=== PATIENT | male | born 1990 | race Hispanic/Latino ===

== ENCOUNTER 2018-04-15 13:32 | Emergency (ER) | payer OTHER | END 2018-04-15 14:47 | disposition home or self-care (01) | LOC: EDH 13:32 | DX: K11.20 Sialoadenitis, unspecified (principal); Z98.890 Other specified postprocedural states; Z72.0 Tobacco use ==

== ENCOUNTER 2018-11-19 23:03 | Inpatient (IN) | payer SELFPAY ==
[~2018-11-19] VITALS: Ht 175.3 cm; Wt 104.6 kg
[2018-11-19] MEDS ORDERED: SODIUM CHLORIDE 0.9% 1000ML 1,000 ML IV ONE (23:46)
[2018-11-20 00:08] LABS: BASOPHILS % (AUTO) 0.3 % (0.0-5.0); HEMATOCRIT 46.9 % (42-54); LYMPHOCYTES % (AUTO) 6.7 % (21.0-51.0); MEAN CORPUSCULAR HEMOGLOBIN 30.9 pg (27.0-33.0); MEAN CORPUSCULAR HGB CONC 33.4 g/dL (32.0-36.0); MEAN CORPUSCULAR VOLUME 92.5 fL (79-99); MONOCYTES % (AUTO) 3.4 % (3.0-13.0); NEUTROPHILS % (AUTO) 89.6 % (40.0-77.0); PLATELET COUNT (AUTO) 187 K/uL (130-400); RED BLOOD CELL COUNT(AUTO) 5.07 MIL/uL (4.50-6.20); RED CELL DISTRIBUTION WIDTH 13.6 % (11.0-15.5); WHITE BLOOD COUNT (AUTO) 20.7 K/uL (4.8-10.8)
[2018-11-20 00:16] LABS: BILIRUBIN,URINE Negative (NEGATIVE); COLOR,URINE Dark Yellow (YELLOW); GLUCOSE, URINE (UA) Negative (NEGATIVE); KETONES,URINE >=80 mg/dL (NEGATIVE); LEUKOCYTE ESTERASE ,URINE Negative (NEGATIVE); NITRATE,URINE Negative (NEGATIVE); OCCULT BLOOD,URINE Large (NEGATIVE); PROTEIN,URINE POS 1+ mg/dL (NEGATIVE)
[2018-11-20 00:19] LABS: CREATININE 1.2 mg/dL (0.5-1.5); POTASSIUM 3.6 mmol/L (3.5-5.1)
[2018-11-20 00:24] LABS: ALBUMIN 4.2 g/dL (3.5-5.0); BILIRUBIN,DIRECT 0.1 mg/dL (0.0-0.3); BILIRUBIN,TOTAL 0.4 mg/dL (0.2-1.0); TOTAL PROTEIN, SERUM 8.4 g/dL (6.0-8.3)
[2018-11-20 00:25] LABS: APPEARANCE,URINE TURBID (CLEAR)
[2018-11-20 00:26] LABS: BACTERIA,URINE None Seen /HPF (None Seen); CALCIUM OXALATE CRYSTALS,UR Rare /LPF (None Seen); SQUAMOUS EPITHELIAL CELL,UR Rare /HPF (0-2); WBC,URINE None Seen /HPF (0-1)
[2018-11-20 00:27] LABS: AMORPHOUS SEDIMENT,UR Many /LPF (None Seen)
[2018-11-20] MEDS ORDERED: CEFTRIAXONE SODIUM 1 GM ONE (01:52)
[2018-11-20] MEDS ORDERED: TAMSULOSIN HCL 0.4 MG CAP.ER.24H ONE (01:52)
[2018-11-20] MEDS ORDERED: SODIUM CHLORIDE 0.9% 1000ML 1,000 ML IV ONE ×2 (01:53→03:34)
[2018-11-20] MEDS: SODIUM CHLORIDE 0.9% 1000ML 1,000 ML IV SCH ×3 (02:48→18:48)
[2018-11-20] MEDS ORDERED: MORPHINE SULFATE 2 MG/ML 1ML SYG IV PRN (03:00)
[2018-11-20] MEDS: CEFTRIAXONE SODIUM 1 GM IV SCH (03:00)
[2018-11-20] MEDS ORDERED: ACETAMINOPHEN 325 MG TAB PO PRN (03:00)
[2018-11-20] MEDS ORDERED: ONDANSETRON HCL 4 MG/2 ML VIAL IV PRN (03:00)
[2018-11-20] MEDS ORDERED: ONDANSETRON HCL 4 MG/2 ML VIAL ONE (03:33)
[2018-11-20 06:08] VITALS: BP 154/80
[2018-11-20 07:30] VITALS: BP 136/79
[2018-11-20] MEDS: ENOXAPARIN SODIUM 40 MG/0.4 ML SYRINGE SQ SCH (09:00)
[2018-11-20] MEDS: FAMOTIDINE 20MG TAB 20 MG TAB PO SCH ×2 (09:04→22:53)
[2018-11-20] MEDS: TAMSULOSIN HCL 0.4 MG CAP.ER.24H PO SCH (09:05)
[2018-11-20 11:00] VITALS: BP 125/94
--- NOTE | 2018-11-20 14:09 | NUR ---
DCP CM met with pt discussed dc plans. Pt is independent prior to admission, lives at home with parents. Denies any equipments/services. Pt feels safe to go back home, still drives and works, mother able to assist with transportation and needs as necessary. Pt is a self pay goes to [facility], [facility] assisting, given [employer] packet. DC plan to home once stable. CM to cont to follow up. Addendum: 11/20/18 at 1412 by SONIA RODRIGUEZ LVN CM Amended: Links added.
[2018-11-20 16:00] VITALS: BP 123/77
[2018-11-20 20:00] VITALS: BP 129/83
[2018-11-21] VITALS: BP 138/82
[2018-11-21] MEDS: CEFTRIAXONE SODIUM 1 GM IV SCH (03:28)
[2018-11-21 04:00] VITALS: BP 138/81
[2018-11-21 04:57] LABS: BASOPHILS % (AUTO) 0.3 % (0.0-5.0); EOSINOPHILS % (AUTO) 0.3 % (0.0-8.0); HEMATOCRIT 43.7 % (42-54); MEAN CORPUSCULAR HEMOGLOBIN 31.9 pg (27.0-33.0); MEAN CORPUSCULAR HGB CONC 33.9 g/dL (32.0-36.0); MONOCYTES % (AUTO) 5.9 % (3.0-13.0); NEUTROPHILS % (AUTO) 58.5 % (40.0-77.0); NUCLEATED RED BLOOD CELLS 0.1 % (0.0-0.19); PLATELET COUNT (AUTO) 164 K/uL (130-400); RED BLOOD CELL COUNT(AUTO) 4.66 MIL/uL (4.50-6.20); RED CELL DISTRIBUTION WIDTH 13.8 % (11.0-15.5); WHITE BLOOD COUNT (AUTO) 13.9 K/uL (4.8-10.8)
[2018-11-21 04:58] LABS: POTASSIUM 3.4 mmol/L (3.5-5.1)
[2018-11-21] MEDS: SODIUM CHLORIDE 0.9% 1000ML 1,000 ML IV SCH ×3 (06:37→18:03)
[2018-11-21 08:31] VITALS: BP 131/76
[2018-11-21] MEDS: TAMSULOSIN HCL 0.4 MG CAP.ER.24H PO SCH (08:51)
[2018-11-21] MEDS: FAMOTIDINE 20MG TAB 20 MG TAB PO SCH (08:51)
[2018-11-21] MEDS: ENOXAPARIN SODIUM 40 MG/0.4 ML SYRINGE SQ SCH (08:51)
[2018-11-21] MEDS ORDERED: LIDOCAINE HCL-MPF 1% 2ML VIAL IVP PRN (11:45)
[2018-11-21] MEDS ORDERED: POTASSIUM CHLORIDE 20MEQ/100ML 100 ML IV PRN (11:45)
[2018-11-21] MEDS ORDERED: ACETAMINOPHEN 325 MG TAB PO PRN (11:45)
[2018-11-21] MEDS ORDERED: POTASSIUM CHLORIDE 10% ELIXIR 20 MEQ/15 ML UDCUP PO PRN (11:45)
[2018-11-21 12:31] VITALS: BP 143/91
[2018-11-21] MEDS ORDERED: CEFD300C3 PO (14:29)
[2018-11-21] MEDS: POTASSIUM CHLORIDE 20 MEQ ERTAB PO PRN ×2 (15:28→16:27)
[2018-11-21 16:03] VITALS: BP 140/81
--- NOTE | 2018-11-21 17:47 | NUR ---
DISCHARGE INSTRUCTIONS GIVEN. INSTRUCTED TO HAVE PRESCRIPTIONS FILLED AND FOLLOW UP WITH PCP OF CHOICE. PCP LIST GIVEN TO PATIENT . ALL QUESTIONS ANSWERED. IV DISCONTINUED WITH INNER CANNULA INTACT.
== END 2018-11-21 18:00 | disposition home or self-care (01) | DRG 694 ==
LOC: EDH 23:03 → EDHIP 23:04 → OBSVTOIN 23:04 → 3DH 11-20 05:41
PROVIDERS: ADMIT Internal Medicine; ATTEND Internal Medicine
DX: N13.2 Hydronephrosis with renal and ureteral calculous obstruction (principal); R19.5 Other fecal abnormalities; E87.6 Hypokalemia; D72.829 Elevated white blood cell count, unspecified
CPT/HCPCS: 36415; 74176; 76770; 80048; 80076; 81001; 85025; 87088; G0378; J0696; J2405; J7030